=== PATIENT | female | born 1960 | race Caucasian/White ===

== ENCOUNTER → 2017-03-06 | Outpatient (CLI) | payer BC ==
[2017-03-06 13:43] LABS: BASO % 0.8 %; BASO ABS # 0.07 K/uL (0-0.2); COMPLETE YES; EOS % 2.2 %; HEMATOCRIT 45.1 % (37-47); IG% 0.2 %; LYMPH % 18.8 %; LYMPH ABS # 1.62 K/uL (1.2-3.4); MEAN CELL VOLUME 88.1 fL (80-100); MEAN CORPUSCULAR HEMOGLOBIN 30.3 pg (25-34); MEAN CORPUSCULAR HGB CONC 34.4 g/dl (32-36); MEAN PLATELET VOLUME 10.7 fL (7.4-10.4); MONO % 4.6 %; NEUT % 73.4 %; PLATELET COUNT 242 K/uL (130-400); RED BLOOD COUNT 5.12 M/uL (4.2-5.4); WHITE BLOOD COUNT 8.64 K/uL (4.8-10.8)
[2017-03-06 14:01] LABS: BLOOD UREA NITROGEN 17 mg/dl (7-18); CARBON DIOXIDE 24 mmol/L (21-32); CHLORIDE 109 mmol/L (98-107); POTASSIUM 4.3 mmol/L (3.5-5.1); SODIUM 142 mmol/L (136-145)
[2017-03-06 14:02] LABS: CALCIUM 9.2 mg/dl (8.5-10.1)
[2017-03-06 14:52] LABS: ALT/SGPT 37 U/L (12-78); BUN/CREATININE RATIO 22.2 (10-20); CHOLESTEROL 146 mg/dl (0-200); CREATININE 0.76 mg/dl (0.60-1.20); GLUCOSE 116 mg/dl (70-99); TRIGLYCERIDES 102 mg/dl (0-150); VERY LOW DENSITY LIPOPROT CALC 20 mg/dl
[2017-03-06 14:58] LABS: ALB/GLOB RATIO 1.4 (0.9-2); ALKALINE PHOSPHATASE 77 U/L (45-117); AST/SGOT 21 U/L (15-37); CHOLESTEROL/HDL RATIO 3.1; HDL CHOLESTEROL 47 mg/dl; LDL CHOLESTEROL CALCULATED 79 mg/dl
== END | disposition home or self-care (01) ==
LOC: C.LABSPEC 12:56
PROVIDERS: ATTEND Family Medicine
DX: Z00.00 Encounter for general adult medical examination without abnormal findings (principal); J44.9 Chronic obstructive pulmonary disease, unspecified; E78.2 Mixed hyperlipidemia

== ENCOUNTER → 2017-09-04 | Outpatient (CLI) | payer BC ==
[2017-09-04 19:09] LABS: BASO % 0.5 %; BASO ABS # 0.05 K/uL (0-0.2); COMPLETE YES; EOS % 2.7 %; HEMATOCRIT 43.9 % (37-47); IG% 0.3 %; LYMPH % 17.3 %; LYMPH ABS # 1.73 K/uL (1.2-3.4); MEAN CELL VOLUME 89.8 fL (80-100); MEAN CORPUSCULAR HEMOGLOBIN 30.9 pg (25-34); MEAN CORPUSCULAR HGB CONC 34.4 g/dl (32-36); MEAN PLATELET VOLUME 11.3 fL (7.4-10.4); NEUT % 73.2 %; PLATELET COUNT 215 K/uL (130-400); RED BLOOD COUNT 4.89 M/uL (4.2-5.4)
[2017-09-04 19:15] LABS: ALT/SGPT 33 U/L (12-78); BLOOD UREA NITROGEN 16 mg/dl (7-18); BUN/CREATININE RATIO 20.6 (10-20); CARBON DIOXIDE 25 mmol/L (21-32); CHLORIDE 108 mmol/L (98-107); CHOLESTEROL 159 mg/dl (0-200); CREATININE 0.77 mg/dl (0.60-1.20); GLUCOSE 108 mg/dl (70-99); POTASSIUM 4.5 mmol/L (3.5-5.1); SODIUM 143 mmol/L (136-145)
[2017-09-04 19:18] LABS: ALB/GLOB RATIO 1.1 (0.9-2); ALKALINE PHOSPHATASE 76 U/L (45-117); AST/SGOT 17 U/L (15-37); CHOLESTEROL/HDL RATIO 2.7; HDL CHOLESTEROL 58 mg/dl; LDL CHOLESTEROL CALCULATED 96 mg/dl; TRIGLYCERIDES 26 mg/dl (0-150); VERY LOW DENSITY LIPOPROT CALC 5 mg/dl
== END | disposition home or self-care (01) ==
LOC: C.LABSPEC 18:00
PROVIDERS: ATTEND Family Medicine
DX: E78.2 Mixed hyperlipidemia (principal); J44.9 Chronic obstructive pulmonary disease, unspecified

== ENCOUNTER 2017-10-09 11:09 | Emergency (ER) | payer BC ==
[~2017-10-09] VITALS: Ht 170.2 cm; Wt 109.5 kg
[2017-10-09 11:14] VITALS: TEMP 36.9; Ht 170.2 cm; Wt 109.5 kg
[2017-10-09] MEDS ORDERED: ALBUT/IPRATROP 3MG/0.5MG NEB 3 ML VIAL INH STA (11:30)
[2017-10-09] MEDS ORDERED: ATOR-22 PO (11:53)
[2017-10-09] MEDS ORDERED: VNTHFA/IN INH (11:53)
[2017-10-09] MEDS ORDERED: SYMIN/8045 INH (11:53)
[2017-10-09] MEDS ORDERED: TRAM-10 PO (11:53)
--- NOTE | 2017-10-09 12:06 | DIAGNOSTIC IMAGING REPORT ---
CHEST 2 VIEWS ROUTINE HISTORY: 57 years-old Female cough, congestion, eval PNA acute cough and congestion for 2 weeks. History of COPD COMPARISON: None available TECHNIQUE: PA and lateral views of the chest FINDINGS: Cardiomediastinal and hilar silhouettes are within normal limits. No pneumothorax, pleural effusion, focal airspace consolidation or overt pulmonary edema. The bones of the chest are grossly intact. There is mild ectasia of the descending thoracic aorta. Multilevel endplate spurring of the spine. IMPRESSION: No acute cardiopulmonary process. The above report was generated using voice recognition software. It may contain grammatical, syntax or spelling errors. Electronically signed by: Sourav Becerra M.D. 10/09/2017 12:05 PM Dictated Date/Time: 10/09/2017 12:03 PM
[2017-10-09 12:18] VITALS: BP 124/77; PULSE 75; O2SAT 98
[2017-10-09] MEDS ORDERED: AZITTAB PO (12:38)
--- NOTE | 2017-10-09 12:44 | EMERGENCY ROOM VISIT NOTE ---
ED Visit Note First contact with patient: 11:21 CHIEF COMPLAINT: Cough HISTORY OF PRESENT ILLNESS: This 57 year old female patient presents to the emergency department with complaint of cough and chest congestion that started almost 2 weeks ago. She states her symptoms started as a head cold, then began to settle into her chest. She has had a productive cough with thick mucus, she is unsure of the color. She states that she has some chest tightness with coughing, but denies any chest pain, and denies shortness of breath. She states that she has had some wheezing and worsening of her cough at night, keeping her awake. She states that she tried to get an appointment with her PCP today, and they did not have any available appointments, show she decided to come to the ER. She reports a history of COPD and is a current smoker. She denies any fevers or chills, headaches, neck pain, abdominal pain, nausea or vomiting, diarrhea, urinary symptoms, or rash. REVIEW OF SYSTEMS: A complete 10 point review of systems was reviewed with the patient with pertinent positives and negatives as per history of present illness. All else were negative. PMH: COPD, hyperlipidemia SOCIAL HISTORY: Patient lives at home. She is a 1 1/2 ppd smoker. ALLERGIES: No known allergies PHYSICAL EXAM: Vital Signs: Reviewed Nurse's notes. Oxygen saturation is 96-98% on room air which is normal. CONSTITUTIONAL: No acute distress. Well appearing and well nourished. Alert and oriented X 4 with normal affect. HEENT: Normocephalic, atraumatic. Pupils equal, round and reactive to light, EOMI. TMs normal. Pharynx normal. NECK: Supple, full active range of motion without discomfort. RESPIRATORY: Clear to auscultation bilaterally with no wheezing, crackles, rhonchi or stridor. Equal expansion bilaterally. CARDIOVASCULAR: Regular rate and rhythm with no murmurs, rubs or gallops. Normal peripheral perfusion. No edema. GASTROINTESTINAL: Soft, nontender, nondistended. Bowel sounds present in all quadrants. MUSCULOSKELETAL: Full range of motion of all joints without discomfort. INTEGUMENTARY: No rash or other significant dermatologic conditions noted. NEUROLOGIC: No focal neurologic deficits noted. Normal gait and balance observed. EMERGENCY DEPARTMENT COURSE: I examined the patient. Differential diagnosis includes viral respiratory illness, bronchitis, pneumonia, COPD exasperation, among others. Chest x-ray shows no evidence of pneumonia. Patient was given a DuoNeb treatment, she reports improvement with this. Due to patient's history of COPD and smoking status, will place on antibiotics, prescription for Z-Jordan sent to patient's pharmacy. Patient was updated on all results and plan for discharge, as well as instructions for follow-up. She was also given strict return precautions should her symptoms worsen, she verbalized understanding. The patient was discharged home in stable condition and ambulatory. Medication Reconciliation: I attest that I have personally reviewed the patient' s current medication list. Blood pressure screening: The patient was found to have an elevated blood pressure and was referred to their primary doctor for recheck and further treatment. Current/Historical Medications Scheduled Atorvastatin (Lipitor), 1 TAB PO DAILY Azithromycin (Zithromax Z-Jordan), 0 PO UD Budesonide/Formoterol Fumarate (Symbicort 80/4.5 Inhaler), 1 PUFF INH BID Scheduled PRN Albuterol Hfa (Ventolin Hfa), 2-4 PUFFS INH Q6H PRN for SOB/Wheezing Tramadol (Ultram), 50 MG PO Q8H PRN for Pain Allergies Coded Allergies: No Known Allergies (Unverified , 10/09/17) Vital Signs Date Time Temp Pulse Resp B/P (MAP) Pulse Ox O2 Delivery O2 Flow Rate FiO2 10/09/17 12:18 75 18 124/77 98 Room Air 10/09/17 11:16 96 Room Air 10/09/17 11:14 36.9 73 20 142/86 96 Room Air Medications Administered Medications (Trade) Dose Ordered Sig/Susy Route Start Time Stop Time Status Last Admin Dose Admin Albuterol/ Ipratropium (Duoneb) 3 ml NOW STAT INH 10/09/17 11:30 10/09/17 11:33 DC 10/09/17 12:01 3 ML Departure Information Impression Primary Impression: Acute bronchitis Dispostion Home / Self-Care Condition GOOD Prescriptions Azithromycin (ZITHROMAX Z-JORDAN) 250 Mg Tab 0 PO UD, #1 PKT 2 TABS DAY 1, THEN 1 TAB DAILY FOR 4 DAYS Prov: Alina Almaguer CRNP 10/09/17 Ref[facility] Patient Instructions ED COPD Flare, ED Upper Resp Infec Abx Tx, My [facility] Additional Instructions You have been evaluated in the emergency department for your cough. There is no evidence of pneumonia on your chest x-ray. You are being placed on antibiotics because you are at higher risk for infection due to your COPD and smoking history. You have been prescribed a Z-Jordan, which is an antibiotic to be taken for the next 5 days, take as directed on the packaging. All antibiotics have the potential to cause diarrhea. Stop this medication and contact a medical provider if you were to develop any significant adverse side effects including: wheezing, shortness of breath, passing out, vomiting, or a diffuse rash. Always take antibiotics as directed and COMPLETE the ENTIRE course regardless of the improvement of your symptoms. Use your albuterol nebulizer every 4 hours as needed for cough, wheezing, chest tightness. You should also use this before bed to help prevent coughing so that you can sleep better at night. Drink plenty of fluids to stay well hydrated. Please follow-up with your PCP or at an urgent care in the next few days to be rechecked if your symptoms are not getting any better. Please return to the emergency department if your symptoms worsen over the next 2-3 days despite treatment course outlined above. Return to the emergency department if you develop the following symptoms of: inability to swallow solids , liquids, or drool; excessive wheezing or inability to catch your breath; worsening chest pain, coughing up blood, severe dizziness or passing out; fever or pain that becomes unmanageable with [id number] medications; or any other concerns. Work Instructions Return To Work: 1 day Problem Qualifiers Primary Impression: Acute bronchitis Bronchitis organism: unspecified organism Qualified Codes: J20.9 - Acute bronchitis, unspecified
== END 2017-10-09 12:52 | disposition home or self-care (01) ==
LOC: C.EDB 11:10 → C.EDD 12:52
DX: J44.0 Chronic obstructive pulmonary disease with (acute) lower respiratory infection (principal); F17.200 Nicotine dependence, unspecified, uncomplicated; E78.5 Hyperlipidemia, unspecified

== ENCOUNTER → 2018-02-26 | Outpatient (CLI) | payer BC ==
[~2018-02-26] MED LIST: ATOR-22 PO; SYMIN/8045 INH; TRAM-10 PO; VNTHFA/IN INH
[2018-02-26 14:33] LABS: BASO % 0.7 %; BASO ABS # 0.05 K/uL (0-0.2); EOS % 4.1 %; EOS ABS # 0.29 K/uL (0-0.5); HEMOGLOBIN 15.2 g/dL (12.0-16.0); IG# 0.01 K/uL (0.00-0.02); LYMPH % 21.2 %; LYMPH ABS # 1.52 K/uL (1.2-3.4); MEAN CORPUSCULAR HEMOGLOBIN 30.4 pg (25-34); MEAN CORPUSCULAR HGB CONC 34.5 g/dl (32-36); MONO % 5.7 %; MONO ABS # 0.41 K/uL (0.11-0.59); NEUT % 68.2 %; NEUT ABS # 4.88 K/uL (1.4-6.5); PLATELET COUNT 225 K/uL (130-400); RED CELL DISTRIBUTION WIDTH CV 12.7 % (11.5-14.5); RED CELL DISTRIBUTION WIDTH SD 40.3 fL (36.4-46.3); WHITE BLOOD COUNT 7.16 K/uL (4.8-10.8)
[2018-02-26 14:56] LABS: ALBUMIN 3.6 gm/dl (3.4-5.0); ALT/SGPT 39 U/L (12-78); AST/SGOT 20 U/L (15-37); BLOOD UREA NITROGEN 15 mg/dl (7-18); CALCIUM 8.7 mg/dl (8.5-10.1); CARBON DIOXIDE 28 mmol/L (21-32); CHOLESTEROL 135 mg/dl (0-200); CREATININE 0.81 mg/dl (0.60-1.20); GLUCOSE 111 mg/dl (70-99); POTASSIUM 4.2 mmol/L (3.5-5.1); SODIUM 142 mmol/L (136-145)
[2018-02-26 15:00] LABS: ALKALINE PHOSPHATASE 76 U/L (45-117); LDL CHOLESTEROL CALCULATED 66 mg/dl; TOTAL PROTEIN 6.7 gm/dl (6.4-8.2)
== END | disposition home or self-care (01) ==
LOC: C.LABSPEC 14:06
PROVIDERS: ATTEND Family Medicine
DX: E78.2 Mixed hyperlipidemia (principal); J44.9 Chronic obstructive pulmonary disease, unspecified